=== PATIENT | female | born 1995 | race Two or more races ===

== ENCOUNTER 2023-10-18 13:46 | Emergency (ER) | payer MEDICAID, OTHER ==
[~2023-10-18] VITALS: Ht 157.5 cm; Wt 94.9 kg
[2023-10-18 15:05] VITALS: BP 134/88; PULSE 116; RESP 16; TEMP 97.7; O2SAT 98
[2023-10-18] MEDS: NEOMYCIN-BACITRACIN-POLYM UNITDOSE PKG TOP OINT TOP ONE (15:59)
[2023-10-18] MEDS ORDERED: CEPH500C PO (16:14)
[2023-10-18] MEDS: TETANUS-DIPTH-ACEL PERTUSSIS 0.5ML SYR Tdap IM ONE (16:25)
== END 2023-10-18 16:43 | disposition home or self-care (01) ==
LOC: ER 13:46
DX: S61.211A Laceration without foreign body of left index finger without damage to nail, initial encounter (principal); W45.8XXA Other foreign body or object entering through skin, initial encounter; Y93.G1 Activity, food preparation and clean up; Y92.89 Other specified places as the place of occurrence of the external cause; Y99.8 Other external cause status
CPT/HCPCS: 12002; 90471; 90715

== ENCOUNTER 2023-10-28 10:47 | Emergency (ER) | payer MEDICAID ==
[~2023-10-28] VITALS: Ht 160 cm; Wt 95.0 kg
[~2023-10-28 10:47] MED LIST: CEPH500C PO
[2023-10-28 10:52] VITALS: BP 132/88
[2023-10-28 11:19] VITALS: PULSE 117; RESP 18; TEMP 97.8; O2SAT 98
== END 2023-10-28 11:28 | disposition home or self-care (01) ==
LOC: ER 10:53
DX: S61.211D Laceration without foreign body of left index finger without damage to nail, subsequent encounter (principal); Z48.02 Encounter for removal of sutures; X58.XXXD Exposure to other specified factors, subsequent encounter

== ENCOUNTER 2023-11-06 11:51 | Emergency (ER) | payer MEDICAID ==
[~2023-11-06] VITALS: Ht 160 cm; Wt 94.2 kg
[2023-11-06 12:42] VITALS: BP 110/72; PULSE 98; RESP 17; TEMP 98; O2SAT 97
== END 2023-11-06 13:16 | disposition home or self-care (01) ==
LOC: ER 11:51
DX: Z48.02 Encounter for removal of sutures (principal)